=== PATIENT | male | born 1960 | race Caucasian/White ===

== ENCOUNTER → 2017-03-31 | Day surgery (SDC) | payer OTHER ==
--- NOTE | 2017-03-25 09:18 | PCM.ANEPRE ---
Anesthesia Pre-Op Review Reason for Review: uncontrolled diabetes Anesthesia Recommendations: Proceed with Procedure Additional Comments 56 yo male with poorly controlled diabetes mellitus scheduled for inguinal hernia repair with mesh. Per notes, patient unable to get out of bed if blood sugar < 180, becomes "shakey" with blood sugar > 250. HgA1c 12.3 on 01/30/2017. Given difficulty with symptoms and blood sugar control, patient has been referred to an pilot boat deckhand but this will not be complete prior to surgery on 03/31/2017. Spoke in person to Dr. Jam Villalobos regarding patient's elevated HgA1c and pending endocrinology consultation. Dr. Villalobos wishes to proceed with surgery at this time. Patient will require a DOS glucose and evaluation by anesthesiologist on day of surgery. Chart Reviewed by: MD Kevyn Hdez Jeffrey L MD Mar 25, 2017 09:17
[~2017-03-31] VITALS: Ht 172.7 cm; Wt 82.1 kg
[2017-03-31] VITALS (22 sets, daily range): BP systolic 95–170; BP diastolic 56–99; PULSE 65–82; RESP 9–16; O2SAT 92–100
[~2017-03-31] MED LIST: AMLO5TAB2 PO; Bupivacaine-MPF 0.5% 30 mL Inj INFILTRATE ONE; CeFAZolin 2 Gm/50 mL D5W IV Premix IV ONE; Dexamethasone 4 mg/mL Inj IVPUSH PRN; EPHEDrine Sulfate 50 mg/mL Inj IVPUSH PRN; HYDROmorphone 1 mg/mL Inj IVPUSH PRN; INSLIS SUBQ; INSU100V7 SUBQ; Insulin LISPRO 300 Unit/3 mL Inj ONE; Ketamine 10 mg/mL 20 mL Inj ONE; LISI10TA PO; Lactated Ringer's 1,000 ML IV ONE; Lactated Ringer's 1,000 ML IV SCH; Lactated Ringer's 500 ML IV PRN; METF1000 PO; MetoCLOpramide 5 mg/mL 2 mL Inj IVPUSH PRN; OXYC5CAP4 PO; Ondansetron 2 mg/mL 2 mL Inj IVPUSH PRN; Ondansetron 2 mg/mL 2 mL Inj ONE; Phenylephrine 10,000 mCg/mL Inj IVPUSH PRN; Propofol 10,000 mCg/mL 20 mL Inj ONE; SILD20TA14 PO; fentaNYL-PF 50 mCg/mL 2 mL Inj IVPUSH PRN; fentaNYL-PF 50 mCg/mL 2 mL Inj ONE; oxyCODONE-Acetamin 5-325 mg Tablet PO PRN
[2017-03-31] MEDS: Lactated Ringer's 1,000 ML IV SCH ×2 (06:00→07:47)
--- NOTE | 2017-03-31 07:25 | PCM.HPANE ---
Patient Data Surgeon Admitting Provider: Attending Provider:Sulaiman Villalobos MD Primary Care Physician:Braxton Santos MD Other Provider:Sekou Riddle Anesthesia Reason for Visit Left Inguinal Hernia Ht/WT & BMI Height (Feet): 5 Height (Inches): 8 Weight (Kilograms): 82.1 Body Mass Index 27.00 Allergies Coded Allergies: No Known Allergies (Verified , 03/24/17) Past Anesthesia History Anesthesia History: Denies:: Abnormal Airway, Anesthesia Reactions, Difficult Intubation, Fam Anesthesia Reaction Diabetes History Hx Diabetes?: Yes Glycemic Control: Insulin & Oral Medication Current Bedside Blood Glucose: 174 MRSA MRSA: No Medications Hypertension Medication: Yes Home Meds Incl Beta Dominguez: No Reported Medications Sildenafil Citrate (Sildenafil)20 Mg [id number] Mg PO PRN erectile dysfunction 03/24/17 Metformin (Glucophage)1,000 Mg Tablet1,000 Mg PO BID Ref 0 03/24/17 Lisinopril 10 Mg [id number] Mg PO DAILY 30 Days Ref 0 03/24/17 Insulin Glargine (Lantus U100 Insulin Vial)100 Unit/Ml Vial56 Unit SUBQ DAILY # 1 VIAL Ref 0 03/24/17 Insulin Human Lispro (HumaLOG U100 Insulin Vial)100 Unit/Ml Hwdw52-15 Unit SUBQ DIRECTED PRN sliding scale Blood glucose #1 VIAL Ref 0 Check blood sugars before meals and at bedtime. Use correction factor only before meals. Blood Sugar Lispro Correction: <151, 0 units; 151-175, 1 unit; 176-200, 2 units; 201-225, 3 units; 226-250, 4 units; 251-275, 5 units; 276-300, 6 units; 301-325, 7 units; 326-350, 8 units; 351-375, 9 units; 376-400, 10 units; >400, 12 units. 03/24/17 Amlodipine 5 Mg Tablet5 Mg PO DAILY Ref 0 03/24/17 History History of ENT Problems?: No HEENT History: Denies:: Abnormal Airway Cataracts (just forming - no surgery) Difficult Intubation Dysphagia Glaucoma Hearing Problem Sinus Problem TMJ Denture Type: None Teeth Condition: Within Normal Limits Hx of Heart Problems?: Yes Cardiovascular History: Positive for:: Hypertension Denies:: AICD Abdominal Aortic Aneurism Cardiac Surgery Coronary Artery Disease Edema Heart Murmur Irregular Heartbeat Pacemaker Peripheral Vascular Rheumatic Fever Hx of Respiratory Problem?: Yes Respiratory History: Positive for:: Use of C-PAP Machine Denies:: Asthma COPD Emphysema Oxygen Administration Pneumonia Tuberculosis Use of Inhalers / NEBS Hx Neurologic Problems?: No Neurological History: Denies:: Dementia Dizziness Headaches Multiple Sclerosis Parkinson's Disease Seizures Hx of GI Problems?: Yes Other GI Pertinent History: left inguinal hernia repair current admission problem Hx of Problems?: No Genitourinary History: Denies:: Kidney Stones Urinary Tract Infection Male Hx: Denies:: Prostate Problems Skin History: Positive for:: History Skin Disorders? (ichthyosis) Hx Musculoskeletal Problems?: No Musculoskeletal History: Positive for:: Back Injury (hx of back injury [facility] ) Denies:: Degenerative Joint Fibromyalgia Joint Replacement Musculoskeletal Trauma Myasthenia Gravis Systemic Lupus Hx of Psycho/Social Problems?: No Hx Surgeries?: Yes (sigmoid colectomy, wilberto) Hx Any Other Health Problems?: Yes Other History: Denies:: Cancer Thyroid Disease History Blood Transfusions: Positive for:: Accept Blood Products? Denies:: Blood Transfusions Hx Diabetes: YesBedside Blood Glucose: 174 Hx Alcohol Use: NoHx Substance Use: NoHave You Smoked inLast 12 mo: No Stop/Bang S-Snoring: Do You Snore Loudly: Yes T-Tired: feel tired, fatigued: No O-Obsered: Observed not breath: No P-Blood Pressure: treated: Yes B- Body Mass Index > 35 kg/m2: No A- Age over 50: Yes N- Neck Large Circumference: No G- Gender Male: Yes JOVANI Total Score: 4 JOVANI Risk Assessment: High Risk, =/>3 Yes Risk Assessment Category Category 1A: Patient has history of documented sleep apnea, and HAS NOT received any narcotic, sedative or anesthesia administration during this stay. Category 1B: Patient has history of documented sleep apnea, and HAS received any narcotic , sedative or anesthesia administration during this stay Category 2: Patient has SUSPECTED Obstructive Sleep Apnea, and HAS received any narcotic , sedative or anesthesia administration during this stay. Category 3: Patient has SUSPECTED Obstructive Sleep Apnea and HAS NOT received narcotic, sedative or anesthesia administration during this stay. Category 4: Outpatient in Procedural Areas with known sleep apnea or who screen positive for High Risk via the STOP/BANG questionnaire. Exam Exam Vital Signs Vital Signs Date Time Temp Pulse Resp B/P Pulse Ox O2 Delivery O2 Flow Rate FiO2 03/31/17 06:09 36.0 69 16 154/86 99 Room Air General Appearance: Alert, Oriented X3, Cooperative, No Acute Distress HEENT/AIRWAY: MP 2 Lungs: Clear to Auscultation, Normal Air Movement Heart: Exam Unremarkable, Regular Rate/Rhythm, No Murmurs/Rubs/Gallops Meds/Labs/Diagnostics Admission Meds Current Medications Lactated Ringer's (Lr) 1,000 ml @ 120 mls/hr Q8H20M IV Last administered on t 06:00; Start 03/31/17 at 05:00; Stop 03/31/17 at 13:19 Bedside Blood Glucose: 174 Plan Impression Patient chart reviewed, patient interviewed and anesthestic plan with risks, benefits, and alternatives discussed, and informed consent obtained. ASA Physical Status: ASA2 Mod Systemic Disease Anesthetic Plan: GA Bene/Risks/Altern/Consents: Yes HP Complete Prior to Induction: Yes Ashvin Palacios MD Mar 31, 2017 07:25
--- NOTE | 2017-03-31 09:06 | OP ---
[address] [address] OPERATIVE REPORT PATIENT: CHANTEL JARAMILLO : 1960 MR#: [id number] ADMIT: 03/31/2017 JOB ID: [id number] DATE OF SURGERY: 03/31/2017 PREOPERATIVE DIAGNOSIS(ES): Symptomatic left inguinal hernia. POSTOPERATIVE DIAGNOSIS(ES): Symptomatic indirect left inguinal hernia. OPERATION: Repair of symptomatic indirect left inguinal hernia with Kugel patch. SURGEON: Sulaiman Villalobos MD. HOTEL CONTROLLER: Jey Nobles PA-C INDICATIONS: A 56-year-old man who has a symptomatic left inguinal hernia and after discussing options with the patient, he elected to proceed with repair. FINDINGS: He had a left indirect inguinal hernia. There was no evidence of a direct or femoral hernia. DESCRIPTION OF PROCEDURE: At the beginning and end of the operation, the SCOAP checklist was completed. An LMA anesthetic was induced. He received preoperative antibiotics. Using ChloraPrep, he was prepped and draped in the usual fashion. The left inguinal incision was designed and infiltrated with 0.5% plain bupivacaine. After making the incision, superficial epigastric vessels were identified and ligated with 3-0 chromic. The external oblique was opened and opened in the direction of its fibers. The internal oblique was opened in the direction of its fibers and the lateral border of the rectus muscle was identified. The transversus abdominis was opened transversely. The transversalis fascia was opened vertically. The preperitoneal space was entered and the deep epigastric artery and vein were identified and reflected anteriorly. The sac was identified along associated with the cord. It was brought down out of the internal ring and dissected off of the cord with a combination of blunt dissection and cautery well beyond the separation of the vas deferens from the gonadal vessels. There was further development of the preperitoneal space and then a small Kugel patch was positioned within it and secured to the transversus abdominis and the medial and the deep medial aspect of the rectus abdominis with interrupted 2-0 PDS. The internal oblique was closed with running 2-0 PDS. The external oblique with 3-0 Vicryl. Ad's with 3-0 Vicryl and the skin with subcuticular 4-0 Vicryl. Dermabond was applied. The estimated blood loss was 10 cc. There were no apparent complications. The final sponge, needle and instrument counts were announced as correct and he was returned to recovery in stable condition. Critical assistance was provided by JOAN Ocampo
--- NOTE | 2017-03-31 09:10 | PCM.DISURG ---
Surgical Discharge Instruction Date of Service Mar 31, 2017 Dates of Hospitalization Date of Hospital Admission Day Surgery 03/31/17 Providers Admitting Physician: Primary Care Physician: Braxton Santos MD Attending Physician: Sulaiman Villalobos MD Discharge Diagnosis Discharge Diagnosis Primary Diagnoses: 1. Left Inguinal Hernia 2. Status Post Open Left Inguinal Hernia Repair Other Chronic Diagnoses: Type 2 Diabetes Hyperlipidemia Essential Hypertension Diet Discharge Diet: No restrictions Activity Discharge Activity-General: Try not to overdue, Balance rest and activity, Activity as pain allows, Activity as energy allows Dressing and Incisional Care Dressing Care: Other (Allow glue to wear off naturally) Hygiene: May shower, DO NOT soak incision under water, NO bathtub, hot tub or whirlpool Follow Up Plan Follow Up Plan Follow up in Outpatient General Surgery Physician Licensed Certified [facility] in 2 weeks. Follow-up Provider (F9): Rosey Fitzgerald PAC Follow-up appointment: Days (2) Call your provider for: Fever, Chills, Shortness of breath, Increasing abdominal pain, Nausea, Vomiting, Wound redness, Increasing wound pain, Warmth to touch, Discharge @ incision, pus discharge Additional Information Attending Statement All documentation reviewed and orders authorized by Dr. Sulaiman Villalobos M.D. Jey Nobles PA-C Mar 31, 2017 09:10
--- NOTE | 2017-04-01 09:25 | PCM.ANEP1 ---
Post Anesthesia PACU Phase 1 Assessment Anesthetic Administered: GA Level of Alertness: Awake, talking JENKINS's with Equal Strength: Yes Pain: No Nausea or Vomiting: No CV Function & Hydration Stable: Yes Airway Device: Oralpharangeal Airway Oxygen Delivery: Simple Mask Lungs: Clear to Auscultation, Normal Air Movement PACU Phase 2 Assessment Complications: No Follow up Care: No Patient Instructions Provided: N/A Ashvin Palacios MD Apr 01, 2017 09:25
== END | disposition home or self-care (01) ==
LOC: SAS 05:54
PROVIDERS: ATTEND Surgery
DX: K40.90 Unilateral inguinal hernia, without obstruction or gangrene, not specified as recurrent (principal); I10 Essential (primary) hypertension; E78.5 Hyperlipidemia, unspecified; E11.9 Type 2 diabetes mellitus without complications; G47.30 Sleep apnea, unspecified; Z79.84 Long term (current) use of oral hypoglycemic drugs; Z79.4 Long term (current) use of insulin
CPT/HCPCS: 49505; C1781; J0690; J1815; J2250; J2405; J3010; J7120